=== PATIENT | female | born 1950 | race Caucasian/White ===

== ENCOUNTER 2016-07-17 05:40 | Day surgery (SDC) | payer OTHER ==
[~2016-07-17] VITALS: Ht 154.9 cm; Wt 84.4 kg
[~2016-07-17 05:40] MED LIST: ATEN-166 PO; HYDR-1189 PO; HYDR50TA3 PO; OMEP20CA10 PO; PARO40TA80 PO
[2016-07-17] MEDS ORDERED: METOCLOPRAMIDE HCL 10 MG/2 ML VIAL IVP ONE (06:40)
[2016-07-17] MEDS ORDERED: fentaNYL CITRATE 250 MCG/5 ML AMP IV ONE (06:40)
[2016-07-17] MEDS ORDERED: MIDAZOLAM HCL 5 MG/5 ML VIAL IVP ONE (06:40)
[2016-07-17] MEDS ORDERED: SEVOFLURANE 15 MIN GAS INH ONE (06:40)
[2016-07-17] MEDS ORDERED: CEFAZOLIN 2 GM IVPB PREMIX 50 ML IV ONE (06:40)
[2016-07-17] MEDS ORDERED: ONDANSETRON HCL 4 MG/2 ML VIAL IVP ONE (06:40)
[2016-07-17] MEDS ORDERED: fentaNYL CITRATE/PF 100 MCG/2 ML AMP IVP ONE (06:40)
[2016-07-17] MEDS ORDERED: LR 1,000 ML IV.SOLN IV ONE (06:40)
[2016-07-17] MEDS ORDERED: ROCURONIUM BROMIDE 10 MG/ML (ZEMURON) IV ONE (06:40)
[2016-07-17] MEDS ORDERED: FAMOTIDINE PF 20 MG/2 ML VIAL IVP ONE (06:40)
[2016-07-17] MEDS ORDERED: NS IRRIG SOLN 1000 ML IR ONE (06:40)
[2016-07-17] MEDS ORDERED: DEXAMETHASONE SOD PHOSPHATE 4 MG/ML VIAL IVP ONE (06:40)
[2016-07-17] MEDS ORDERED: KETOROLAC TROMETHAMINE 30 MG VIAL IVP ONE (06:40)
[2016-07-17] MEDS ORDERED: FAMOTIDINE PF 20 MG/2 ML VIAL ONE (08:15)
[2016-07-17] MEDS ORDERED: LR 1,000 ML IV SCH (08:16)
[2016-07-17] MEDS ORDERED: HYDROmorphone 1 MG INJ. 1 MG/ML AMPUL IVP PRN (08:30)
[2016-07-17] MEDS ORDERED: HYDROmorphone 2 MG/ML VIAL IVP PRN ×2 (08:30)
[2016-07-17] MEDS: LR 1,000 ML IV SCH ×2 (11:05→15:28)
[2016-07-17] MEDS ORDERED: ONDANSETRON HCL 4 MG/2 ML VIAL IVP PRN (11:15)
[2016-07-17] MEDS ORDERED: SIMETHICONE 80 MG TAB.CHEW PO PRN (11:15)
[2016-07-17] MEDS ORDERED: OXYCODONE/ACETAMINOPHEN 5-325 TABLET PO PRN (11:15)
[2016-07-17] MEDS ORDERED: IBUPROFEN 800 MG TABLET PO PRN (11:15)
--- NOTE | 2016-07-17 12:15 | NUR ---
PATIENT BROUGHT TO ROOM 134B, PLACED IN BED, ON 2LPM O2. C/O PAIN 9/10 TO SURGICAL SITE. ADMISSION DATA OBTAINED. IS AT BEDSIDE
[2016-07-17 12:55] VITALS: BP 107/69; PULSE 79; RESP 18; TEMP 97.6; O2SAT 98
--- NOTE | 2016-07-17 14:10 | NUR ---
PATIENT REPORTS DECREASED PAIN.
[2016-07-17] MEDS: OXYCODONE/ACETAMINOPHEN 5-325 TABLET PO PRN ×2 (15:32→21:08)
[2016-07-17 16:00] VITALS: BP 98/51; PULSE 68; RESP 18; TEMP 98.8; O2SAT 97
[2016-07-17 19:32] VITALS: BP 102/62; PULSE 71; RESP 16; TEMP 97.3; O2SAT 96
--- NOTE | 2016-07-17 20:02 | NUR ---
initial nursing notes: Patient is awake. Patient has IV fluid infusing on the right forearm. Patient has a Goldstein catheter with clear yellow urine output. Patient is on 2L O2 via nasal cannula. O2 sat: 96%. Patient has SCD on bilateral legs. Patient demonstrates proper use of call light.
[2016-07-17] MEDS ORDERED: TEMAZEPAM 15 MG CAPSULE PO PRN (21:00)
[2016-07-17] MEDS ORDERED: SENNOSIDES/DOCUSATE SODIUM 1 TAB TABLET(SENOKOT-S) PO PRN ×2 (21:00)
--- NOTE | 2016-07-17 22:08 | NUR ---
nursing rounds: Patient stated that she feels better, after receiving pain medication. Patient calmly resting in bed.
--- NOTE | 2016-07-18 | NUR ---
nursing rounds: Patient is calmly resting in bed. No respiratory distress noted.
[2016-07-18 00:28] VITALS: BP 95/44; PULSE 59; RESP 20; TEMP 97.4; O2SAT 97
--- NOTE | 2016-07-18 02:00 | NUR ---
nursing rounds: Patient is sleeping in bed. No shortness of breath noted.
[2016-07-18] MEDS: LR 1,000 ML IV SCH (03:05)
--- NOTE | 2016-07-18 04:00 | NUR ---
nursing rounds: Patient asleep in bed. No falls and no injuries noted.
[2016-07-18 04:15] VITALS: BP 101/57; PULSE 71; RESP 18; TEMP 98; O2SAT 96
--- NOTE | 2016-07-18 06:00 | NUR ---
nursing rounds: Patient is awake. Patient denies of having pain.
[2016-07-18 07:49] LABS: HEMATOCRIT 34.7 % (36-48); HEMOGLOBIN 11.7 g/dL (12.0-16.0)
--- NOTE | 2016-07-18 08:00 | NUR ---
AM INITIAL NOTES PT AAOX4 WITH COMPLAINTS OF MILD POST SURGICAL ABDOMINAL PAIN. NO DISTRESS NOTED. ABDOMINAL INCISION COVERED WITH DRESSING. DRESSINGS APPEAR DRY, CLEAN AND INTACT. NO DRAINAGE NOTED. DUMONT CATHETER IN PLACE. ENCOURAGED TO AMBULATE AND DO DEEP BREATHING EXERCISES. KEPT COMFORTABLE. SAFETY AND FALL PRECAUTIONS ENFORCED. ENCOURAGED TO CALL FOR ASSISTANCE. CALL LIGHT WITHIN REACH. WILL MONITOR.
--- NOTE | 2016-07-18 08:36 | NUR ---
closing nursing notes: Patient is awake, alert and oriented X 4. Patient is in no acute respiratory distress. No episodes of fall and no injuries throughout the night shift manager. Provided nursing report to incoming morning shift nurse at patient's bedside.
[2016-07-18 08:50] VITALS: BP 97/41; PULSE 66; RESP 18; TEMP 97; O2SAT 93
--- NOTE | 2016-07-18 08:52 | NUR ---
Nutrition Update Oscar Scale 16 noted. Pt admitted for malignant neoplasm of unspecified site. Diet: clear liquid BMI: 35.1 kg/m2 RD to follow per nutrition care standards.
[2016-07-18] MEDS: OXYCODONE/ACETAMINOPHEN 5-325 TABLET PO PRN (09:12)
--- NOTE | 2016-07-18 09:22 | NUR ---
PERCOSET / D/C DUMONT / AMBULATE PT MEDICATED WITH PERCOSET 5-325MG 1 TAB FOR POSTSURGICAL PAIN 11/25. D/C DUMONT CATHETER WITH NO DISCOMFORT NOTED. 300 CC NOTED IN BAG. ASSISTED PATIENT TO AMBULATE FOR BRP. PT ABLE TO VOID A LITTLE. BACK IN BED. ENCOURAGED TO CALL FOR ASSISTANCE. CALL LIGHT WITHIN REACH. WILL MONITOR.
--- NOTE | 2016-07-18 09:55 | NUR ---
DR. JORDAN DEGROOT DOING ROUNDS. PLAN OF CARE DISCUSSED WITH PATIENT.
--- NOTE | 2016-07-18 11:30 | NUR ---
ROUNDS PT AWAKE AMBULATING INSIDE ROOM. COMPLAINTS OF MILD POST SURGICAL PAIN. NO DISTRESS NOTED. ENCOURAGED TO CALL FOR ASSISTANCE. WILL MONITOR.
[2016-07-18 12:15] VITALS: BP 120/71; PULSE 83; RESP 17; TEMP 97.6; O2SAT 91
[2016-07-18 12:16] VITALS: BP 120/71; PULSE 83; RESP 17; TEMP 97.6; O2SAT 91
--- NOTE | 2016-07-18 12:45 | NUR ---
DISCHARGE DISCHARGE PATIENT WITH . DISCHARGE INSTRUCTIONS AND HANDOUT EXPLAINED AND GIVEN. D/C IV AND DRESSING APPLIED. INCISION SITE COVERED WITH STERI STRIPS. NO DRAINAGE NOTED. VITAL SIGNS STABLE. PT LEFT FLOOR VIA WHEELCHAIR TO PRIVATE VEHICLE. NO DISTRESS NOTED.
== END 2016-07-18 12:45 | disposition home or self-care (01) ==
LOC: SMU 05:40 → SDS 05:40 → SMU 13:06 → SDS 07-18 12:45
PROVIDERS: ATTEND Obstetrics & Gynecology
DX: C56.9 Malignant neoplasm of unspecified ovary (principal); C50.919 Malignant neoplasm of unspecified site of unspecified female breast; Z15.01 Genetic susceptibility to malignant neoplasm of breast; Z53.31 Laparoscopic surgical procedure converted to open procedure; I10 Essential (primary) hypertension; Z90.49 Acquired absence of other specified parts of digestive tract; Z90.710 Acquired absence of both cervix and uterus; K21.9 Gastro-esophageal reflux disease without esophagitis; E66.9 Obesity, unspecified; F32.9 Major depressive disorder, single episode, unspecified; F41.9 Anxiety disorder, unspecified
CPT/HCPCS: 36415 ×2; 58720; 85018; 86886; 86900; 86901; 87081; 88305; C1727; J0690; J1100; J1885; J2250; J2405; J2765; J3010 ×2; J3490; J7120